=== PATIENT | male | born 1985 | race American Indian/Alaskan Native ===

== ENCOUNTER 2018-01-04 21:00 | Emergency (ER) | payer BC ==
[2018-01-04] MEDS ORDERED: TYLENOL PO ONE (23:00)
[2018-01-04] MEDS ORDERED: TYLENOL ONE (23:01)
[2018-01-04 23:13] VITALS: BP 116/70
--- NOTE | 2018-01-05 00:39 | XRay Report ---
FINAL REPORT EXAM: XR KNEE 3V RT HISTORY: pain and swelling R knee TECHNIQUE: Three views of the right knee PRIORS: None. FINDINGS: The bones are normally aligned and mineralized. The joint spaces are well-preserved. There is no evidence of acute fracture. There is increased suprapatellar density consistent with a joint effusion. IMPRESSION: No evidence of acute fracture or subluxation.
[2018-01-05] MEDS ORDERED: TORADOL IM ONE (04:45)
--- NOTE | 2018-01-05 04:53 | Emergency Department Report ---
ED Extremity Problem HPI - General Chief complaint: Extremity Problem,Nontraumatic Stated complaint: SWOLLEN KNEE WITH PAIN Time Seen by Provider: 01/05/18 03:53 Source: patient Mode of arrival: Ambulatory Limitations: No Limitations - History of Present Illness Initial comments: Repeat 2-year-old -[place] male comes in with complaint of right knee swelling and pain. Patient reports onset of pain was on Tuesday and Tuesday and Tuesday swelling and worsening of the pain. Patient denies any injury. Patient reports that he took indomethacin on Tuesday and Tuesday and was vomiting. Patient reports pain is a 9 out of 10. He reports that the pain feels like it's behind his knee. He shouldn't a past medical history of CHF and cholecystectomy in 2016. He is allergic to penicillin. MD Complaint: extremity pain, extremity swelling, joint swelling -: days(s) (3) Location: right, knee History of Same: No -: Yes arthralgia Radiation: none Severity scale (0 -10): 9 Quality: aching Consistency: constant Improves with: rest Worsens with: weight bearing, walking Associated Symptoms: denies other symptoms - Related Data Previous Rx's Medication Instructions Recorded Last Taken Type Naproxen [Naprosyn] 500 mg PO BID #20 tablet 01/05/18 Unknown Rx Allergies Allergy/AdvReac Type Severity Reaction Status Date / Time Penicillins Allergy Rash Verified 01/04/18 23:13 ED Review of Systems ROS: Stated complaint: SWOLLEN KNEE WITH PAIN Other details as noted in HPI Constitutional: denies: chills, fever Eyes: denies: eye pain, eye discharge, vision change ENT: denies: ear pain, throat pain Respiratory: denies: cough, shortness of breath, wheezing Cardiovascular: denies: chest pain, palpitations Endocrine: no symptoms reported Gastrointestinal: denies: abdominal pain, nausea, diarrhea Genitourinary: denies: urgency, dysuria Musculoskeletal: joint swelling, arthralgia Skin: denies: rash, lesions Neurological: denies: headache, weakness, paresthesias Psychiatric: denies: anxiety, depression Hematological/Lymphatic: denies: easy bleeding, easy bruising ED Past Medical Hx - Past Medical History Previous Medical History?: Yes Hx Congestive Heart Failure: Yes - Surgical History Hx Cholecystectomy: Yes (12/2016) - Social History Smoking Status: Never Smoker Substance Use Type: None - Medications Home Medications: Home Medications Medication Instructions Recorded Confirmed Last Taken Type Naproxen [Naprosyn] 500 mg PO BID #20 tablet 01/05/18 Unknown Rx ED Physical Exam - General Limitations: No Limitations General appearance: alert, in no apparent distress - Head Head exam: Present: atraumatic, normocephalic - Eye Eye exam: Present: normal appearance - ENT ENT exam: Present: mucous membranes moist - Neck Neck exam: Present: normal inspection - Respiratory Respiratory exam: Present: normal lung sounds bilaterally. Absent: respiratory distress - Cardiovascular Cardiovascular Exam: Present: regular rate, normal rhythm. Absent: systolic murmur, diastolic murmur, rubs, gallop - GI/Abdominal GI/Abdominal exam: Present: soft, normal bowel sounds - Rectal Rectal exam: Present: deferred - Extremities Exam Extremities exam: Present: normal inspection - Expanded Lower Extremity Exam Right Hip exam: Present: normal inspection, full ROM Upper Leg exam: Present: normal inspection, full ROM Knee exam: Present: tenderness, swelling, effusion. Absent: deformity, crepidus , dislocation Lower Leg exam: Present: normal inspection. Absent: swelling, palpable cord, Colin's sign Ankle exam: Present: normal inspection, full ROM Foot/Toe exam: Present: normal inspection, full ROM Neuro vascular tendon exam: Present: no vascular compromise Gait: Positive: unable to bear weight - Back Exam Back exam: Present: normal inspection - Neurological Exam Neurological exam: Present: alert, oriented X3 - Psychiatric Psychiatric exam: Present: normal affect, normal mood - Skin Skin exam: Present: warm, dry, intact, normal color. Absent: rash ED Course Vital Signs 01/04/18 23:08 Temperature 98.5 F Pulse Rate 91 H Respiratory 18 Rate Blood Pressure 116/70 O2 Sat by Pulse 94 Oximetry ED Medical Decision Making - Radiology Data Radiology results: report reviewed, image reviewed FINDINGS: The bones are normally aligned and mineralized. The joint spaces are well-preserved. There is no evidence of acute fracture. There is increased suprapatellar density consistent with a joint effusion. IMPRESSION: No evidence of acute fracture or subluxation. Transcribed By: SHI Dictated By: SAMANTHA GRULLON MD Electronically Authenticated By: SAMANTHA GRULLON MD Signed Date/Time: 01/05/18 0033 - Medical Decision Making Patient's been evaluated by this provider in fast track. X-ray of the knee shows that he has an infusion. We'll give patient a Toradol injection. Place patient in a knee immobilizer. Patient to continue with crutches. Referral to orthopedics. Patient verbalized understanding. Critical care attestation.: If time is entered above; I have spent that time in minutes in the direct care of this critically ill patient, excluding procedure time. ED Disposition Clinical Impression: Effusion of knee joint right Disposition: DC- TO HOME OR SELFCARE Is pt being admited?: No Does the pt Need Aspirin: No Condition: Stable Additional Instructions: He is take pain medication as prescribed. Follow-up with orthopedist. Prescriptions: Naproxen [Naprosyn] 500 mg PO BID #20 tablet Referrals: PRIMARY CAREMD [Primary Care Provider] - 3-5 Days ZIA MONTOYA MD [Staff Physician] - 3-5 Days MO INIGUEZ MD [Staff Physician] - 3-5 Days JOSE RAUL KENNEDY MD [Staff Physician] - 3-5 Days Forms: Work/School Release Form(ED)
== END 2018-01-05 05:10 | disposition home or self-care (01) ==
LOC: ED 21:00
DX: M25.461 Effusion, right knee (principal); I50.9 Heart failure, unspecified; Z90.49 Acquired absence of other specified parts of digestive tract; Z88.0 Allergy status to penicillin
CPT/HCPCS: 29505; 73562; 96372; 99284; J1885

== ENCOUNTER 2019-01-16 09:32 | Day surgery (SDC) | payer BC ==
[2019-01-16] MEDS ORDERED: VANCOMYCIN/NS 1 GM/250 ML 1 GM/250 ML BAG IV NR (10:00)
[2019-01-16] MEDS ORDERED: NACL 0.9% 500 ML 500 ML ONE ×3 (10:32→12:05)
--- NOTE | 2019-01-16 10:48 | Anesthesia Consultation ---
Anesthesia Consult and Med Hx Date of service: 01/16/19 - Airway Anesthetic Teeth Evaluation: Good ROM Head & Neck: Adequate Mental/Hyoid Distance: Adequate Mallampati Class: Class III Intubation Access Assessment: Possibly Difficult - Pulmonary Exam CTA: Yes - Cardiac Exam Cardiac Exam: RRR (grade 2/6 systolic murmur) - Pre-Operative Health Status ASA Pre-Surgery Classification: ASA4 Proposed Anesthetic Plan: MAC - Pulmonary Hx Smoking: No Hx Respiratory Symptoms: No - Cardiovascular System Hx Hypertension: Yes Hx Heart Attack/AMI: No Hx Percutaneous Transluminal Coronary Angioplasty (PTCA): No Hx Cardia Arrhythmia: No Hx Pacemaker: Yes Hx Internal Defibrillator: Yes Hx Valvular Heart Disease: Yes (sevre MR, TR) - Central Nervous System CVA: No - Gastrointestinal Hx Gastroesophageal Reflux Disease: No - Endocrine Hx Renal Disease: No Hx Liver Disease: No Hx Insulin Dependent Diabetes: No Hx Non-Insulin Dependent Diabetes: No Hx Thyroid Disease: No - Other Systems Hx Obesity: Yes - Additional Comments Anesthesia Medical History Comments: No hx anesthetic complications. TTE 06/2018 with EF 25-40%, elevated RSVP with normal RV function, severe MR, TR. Nonfunctional AICD. >4mets exercise tolerance. Will give usual dose coreg in preop.
--- NOTE | 2019-01-16 10:48 | Anesthesia Day of Surgery ---
Anesthesia Day of Surgery - Day of Surgery Patient Examined: Yes Patient H&P Reviewed: Yes Patient is NPO: Yes Beta Blockers: Yes
[2019-01-16] MEDS ORDERED: NACL 0.9% 1,000 ML, .VANCOMYCIN VIAL 1,000 MG IR ONE (10:59)
[2019-01-16] MEDS ORDERED: VANCOMYCIN 1,500 MG in NACL 0.9% 500 ML 500 ML IV NR (11:00)
[2019-01-16 11:13] LABS: Hematocrit 42.2 % (35.5-45.6); Hemoglobin 14.4 gm/dl (11.8-15.2); Mean Corpuscular HGB Conc 34 % (32-34); Mean Corpuscular Volume 82 fl (84-94); Platelet Count 146 K/mm3 (140-440); Red Blood Count 5.16 M/mm3 (3.65-5.03); Red Cell Distribution Width 15.5 % (13.2-15.2)
[2019-01-16 11:29] LABS: INR 1.15 (0.87-1.13)
[2019-01-16 11:30] LABS: Partial Thromboplastin Time 30.8 Sec. (24.2-36.6)
[2019-01-16 11:38] LABS: Albumin 4.4 g/dL (3.9-5); BUN/Creatinine Ratio 17; Blood Urea Nitrogen 12 mg/dL (9-20); Calcium 8.5 mg/dL (8.4-10.2); Hemolysis Index 130
[2019-01-16] MEDS ORDERED: NACL 0.9% 500 ML IR ONE (11:43)
[2019-01-16] MEDS ORDERED: XYLOCAINE 1% 20 mL ONE (11:44)
[2019-01-16] MEDS ORDERED: MARCAINE 0.5% INFILTRATI ONE (11:44)
[2019-01-16 11:47] LABS: Alanine Aminotransferase 21 units/L (7-56)
[2019-01-16] MEDS ORDERED: AMIDATE IV ONE (11:47)
[2019-01-16] MEDS ORDERED: DIPRIVAN 10 MG/ML IV ONE ×3 (11:47→12:02)
[2019-01-16] MEDS ORDERED: VERSED ONE ×2 (11:48→13:25)
[2019-01-16] MEDS ORDERED: DILAUDID ONE (11:48)
[2019-01-16 12:05] LABS: Anisocytosis 1+; Platelet Estimate Consistent w Auto; Poikilocytosis 1+; Target Cells 1+; Tear Drop Cells Few; Total Cells Counted 100
[2019-01-16 12:06] LABS: Smudge Cells Few
[2019-01-16] MEDS ORDERED: COREG PO ONE (12:45)
[2019-01-16] MEDS ORDERED: .VANCOMYCIN VIAL 1,000 MG in NACL 0.9% 1,000 ML IRRIGATION ONE (13:14)
[2019-01-16] MEDS ORDERED: NORCO 5/325 PO ONE (16:00)
--- NOTE | 2019-01-16 17:56 | Post Anesthesia Evaluation ---
- Post Anesthesia Evaluation Patient Participated: Yes Airway Patent: Yes Stable Respiratory Function: Yes Nausea/Vomiting: No Temp > 96.8F: Yes Pain Manageable: Yes Adequeate Hydration: Yes Anesthesia Complications: No Other Comments: Patient left prior to post-anesthesia eval however patient met standard d/c criteria per discussion with RN. Patient had friend with him to drive him home.
[2019-01-16 20:41] VITALS: BP 125/74
== END 2019-01-16 16:59 | disposition home or self-care (01) ==
LOC: CATHLABREC 09:32
PROVIDERS: ATTEND Internal Medicine Cardiovascular Disease
DX: I11.0 Hypertensive heart disease with heart failure (principal); I50.22 Chronic systolic (congestive) heart failure; I42.8 Other cardiomyopathies; E66.9 Obesity, unspecified; Z88.0 Allergy status to penicillin; Z79.899 Other long term (current) drug therapy; Z95.0 Presence of cardiac pacemaker; Z90.49 Acquired absence of other specified parts of digestive tract; Z68.34 Body mass index [BMI] 34.0-34.9, adult; Z98.890 Other specified postprocedural states; Z95.1 Presence of aortocoronary bypass graft
CPT/HCPCS: 33262; 36415; 80053; 85007; 85025; 85610; 85730; 93005; 93010; 96365; 96366; C1722; J1170; J2250; J2704; J3370; J7040; Q9967

== ENCOUNTER 2021-11-16 20:46 | Emergency (ER) | payer BC, MEDICAID ==
[2021-11-16] MEDS ORDERED: ASPIRIN 325 MG TAB PO ONE (21:34)
[2021-11-16] MEDS ORDERED: ONDANSETRON 4 MG/2 ML INJ IV ONE (21:42)
[2021-11-16] MEDS ORDERED: fentaNYL 100 MCG/2 ML INJ IV ONE (21:42)
[2021-11-16] MEDS ORDERED: NITROGLYCERIN 2% OINT 1 GM TP ONE (21:42)
--- NOTE | 2021-11-16 21:47 | Emergency Department Report ---
HPI - General Chief Complaint: Chest Pain Time Seen by Provider: 11/16/21 21:33 - HPI HPI: MSE 3 The patient is a 36-year-old male present with a chief complaint of chest pain. Patient states his symptoms began today with needlelike pain in his left chest has been intermittent. Patient admits to shortness of breath, diaphoresis and nausea without vomiting associated with this pain. Patient states he is also had tingling in his fingertips bilaterally. Patient admits to a nonproductive cough occasionally for 1 week. Patient states he has been vaccinated against Covid receiving 3 of his vaccinations ED Past Medical Hx - Past Medical History Hx Hypertension: Yes Hx Heart Attack/AMI: No Hx Congestive Heart Failure: Yes Hx Liver Disease: No Hx Renal Disease: No - Surgical History Hx Pacemaker: Yes Hx Internal Defibrillator: Yes Hx Cholecystectomy: Yes - Social History Smoking Status: Never Smoker - Medications Home Medications: Home Medications Medication Instructions Recorded Confirmed Last Taken Type Digoxin 125 mcg PO DAILY 01/16/19 01/16/19 01/16/19 History 125 mcg Furosemide [Lasix TAB] 40 mg PO DAILY 01/16/19 01/16/19 01/15/19 History 40 mg Potassium Chloride [Klor-Con M20] 20 meq PO DAILY 01/16/19 01/16/19 Unknown History allopurinoL [Allopurinol] 100 mg PO DAILY 01/16/19 01/16/19 01/15/19 History 100 mg carvediloL [Carvedilol] 12.5 mg PO BID 01/16/19 01/16/19 01/15/19 History 12.5mg traMADoL [Ultram] 50 mg PO Q6HR PRN #10 tablet 11/16/21 Unknown Rx ED Review of Systems ROS: Stated complaint: CHEST PAIN/HEART FAILURE PT Other details as noted in HPI Physical Exam - Physical Exam Vital Signs: Vital Signs 11/16/21 21:10 Temperature 98.9 F Pulse Rate 75 Respiratory 18 Rate Blood Pressure 110/63 [Right] O2 Sat by Pulse 99 Oximetry ED Course Vital Signs 11/16/21 21:10 Temperature 98.9 F Pulse Rate 75 Respiratory 18 Rate Blood Pressure 110/63 [Right] O2 Sat by Pulse 99 Oximetry - Consultations Consultation #1: 11/16/21 21:49 Cardiology called 11/16/21 21:55 Case discussed with telemetry nurse Dr. Avendano.he-states patient has history of a flutter and nonischemic cardiomyopathy. If troponin is negative patient may be discharged home ED Medical Decision Making - Lab Data Result diagrams: 11/16/21 21:52 11/16/21 21:52 - EKG Data -: EKG Interpreted by Me Rate: normal - EKG Data When compared to previous EKG there are: previous EKG unavailable Interpretation: nonspecific ST-T wave monse, other (A flutter with 4:1 conduction.) - Radiology Data Radiology results: report reviewed (Chest x-ray), image reviewed (Chest x-ray) interpreted by me: Chest x-ray-no definite focal infiltrates, no pneumothorax. CHEST 2 VIEWS INDICATION / CLINICAL INFORMATION: CHEST PAIN. COMPARISON: 12/20/2017 FINDINGS: SUPPORT DEVICES: Stable, satisfactory device positioning. HEART / MEDIASTINUM: Stable. LUNGS / PLEURA: No significant pulmonary or pleural abnormality. No pneumothorax. ADDITIONAL FINDINGS: No significant additional f indings. IMPRESSION: 1. No acute findings. Signer Name: Roland Hamilton MD Signed: 11/16/2021 9:07 PM Workstation Name: [id number] - Differential Diagnosis ACS, pericarditis, GERD Critical care attestation.: If time is entered above; I have spent that time in minutes in the direct care of this critically ill patient, excluding procedure time. ED Disposition Clinical Impression: Nonischemic cardiomyopathy Disposition: 01 HOME / SELF CARE / HOMELESS Is pt being admited?: No Does the pt Need Aspirin: No Condition: Stable Additional Instructions: Return to the emergency department should you develop worsening symptoms, inability to tolerate food or liquids, high fever or any other concerns Prescriptions: traMADoL [Ultram] 50 mg PO Q6HR PRN #10 tablet PRN Reason: Pain Referrals: PRIMARY CARE, [Primary Care Provider] - 3-5 Days DAVID BRODY MD [Staff Physician] - 3-5 Days Time of Disposition: 23:58 Heart Score - HEART Score History: Moderately suspicious EKG: Non-specific Age: < 45 Risk factors: 1-2 risk factors Troponin: < normal limit HEART Score: 3 - EKG Read Time Time EKG Completed: 21:04 EKG Read Time: 21:13
[2021-11-16 22:29] LABS: Basophils % (Auto) 0.2 % (0.0-1.8); Eosinophils # (Auto) 0.4 K/mm3 (0.0-0.4); Hematocrit 41.2 % (35.5-45.6); Hemoglobin 14.1 gm/dl (11.8-15.2); Mean Corpuscular HGB Conc 34 % (32-34); Mean Corpuscular Volume 87 fl (84-94); Monocytes # (Auto) 0.7 K/mm3 (0.0-0.8); Platelet Count 203 K/mm3 (140-440); Red Blood Count 4.76 M/mm3 (3.65-5.03); Red Cell Distribution Width 14.2 % (13.2-15.2)
[2021-11-16 22:38] LABS: INR 0.96 (0.87-1.13)
[2021-11-16 22:39] LABS: Partial Thromboplastin Time 28.7 Sec. (24.2-36.6)
[2021-11-16 22:45] LABS: Creatine Kinase MB 5.9 ng/mL (0.0-4.0)
[2021-11-16 22:47] LABS: Alanine Aminotransferase 29 units/L (7-56); Albumin 4.2 g/dL (3.9-5); BUN/Creatinine Ratio 14; Blood Urea Nitrogen 15 mg/dL (9-20); Calcium 8.4 mg/dL (8.4-10.2); Hemolysis Index 9
[2021-11-16] MEDS ORDERED: POTASSIUM CHLORIDE ER 20 MEQ TAB PO ONE (22:49)
[2021-11-16] MEDS ORDERED: MAGNESIUM SULFATE 2 GM/50 ML BAG IV ONE (22:49)
--- NOTE | 2021-11-16 23:54 | XRay Report ---
CHEST 2 VIEWS INDICATION / CLINICAL INFORMATION: CHEST PAIN. COMPARISON: 12/20/2017 FINDINGS: SUPPORT DEVICES: Stable, satisfactory device positioning. HEART / MEDIASTINUM: Stable. LUNGS / PLEURA: No significant pulmonary or pleural abnormality. No pneumothorax. ADDITIONAL FINDINGS: No significant additional findings. IMPRESSION: 1. No acute findings. Signer Name: Roland Hamilton MD Signed: 11/16/2021 10:07 PM Workstation Name: [id number]
[2021-11-17 01:45] VITALS: BP 99/65
--- NOTE | 2021-11-17 14:06 | Electrocardiograph Report ---
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
== END 2021-11-17 01:48 | disposition home or self-care (01) ==
LOC: ED 20:46
DX: I42.8 Other cardiomyopathies (principal); I11.0 Hypertensive heart disease with heart failure; I50.9 Heart failure, unspecified; Z90.49 Acquired absence of other specified parts of digestive tract
CPT/HCPCS: 36415; 71046; 80053; 80162; 82550; 82553; 83735; 84484; 85025; 85610; 85730; 93005; 93010; 96365; 96375; 99284; J2405; J3010; J3475; 96374